=== PATIENT | female | born 1970 | race Caucasian/White ===

== ENCOUNTER 2016-03-28 23:47 | Emergency (ER) | payer BC, OTHER ==
[2016-03-29 00:26] VITALS: TEMP 99.1; O2SAT 97
--- NOTE | 2016-03-29 00:27 | ED.PDOC ---
History of Present Illness - General Chief Complaint: Headache Stated Complaint: facial pain right Time Seen by Provider: 03/29/16 00:21 Source: patient Exam Limitations: no limitations - History of Present Illness Initial Comments: She stated that her intermittent right sided sharp facial pain started early yesterday at about 0300 h which woke her up took several OTC pain medication nsaid ,acetominophen which did not relieve her symptoms persisting up to the time she got to er. Timing/Duration: intermittent, other - 18 hours Severity: severe Improving Factors: nothing Worsening Factors: nothing Associated Symptoms: other - blurry vision right Allergies/Adverse Reactions: Allergies Ceftriaxone [From Rocephin] Allergy (Verified 03/29/16 00:10) Ondansetron [From Zofran] Allergy (Verified 03/29/16 00:14) Penicillins Allergy (Verified 03/29/16 00:14) Sulfa Antibiotics Allergy (Verified 03/29/16 00:14) Home Medications: Ambulatory Orders Gabapentin 300 mg PO TID #30 cap 03/29/16 Tramadol HCl [Rybix Odt] 50 mg PO Q4HR PRN #20 tab 03/29/16 predniSONE [Prednisone] 10 mg PO BID #14 tab 03/29/16 Review of Systems - Review of Systems Constitutional: States: see HPI EENTM: States: see HPI, blurred vision, ear discharge - chronic right Respiratory: States: no symptoms reported Cardiology: States: no symptoms reported Gastrointestinal/Abdominal: States: no symptoms reported Genitourinary: States: no symptoms reported Musculoskeletal: States: no symptoms reported Skin: States: no symptoms reported Neurological: States: no symptoms reported, depressed - chronic Endocrine: States: no symptoms reported Past Medical History (General) - Patient Medical History Hx Other PMH: Yes - TMJ,depression Surgical History: appendectomy, cholecystectomy, other - ,tahbso - Social History Hx Depression: Yes - since son 4 years ago - Activities of Daily Living Patient Lives Alone: No - lives with - Female History Patient is a Female of Child Bearing Age (10 -59 yrs old): No - tahbso Family Medical History - Family History Father Hx Family Hypertension: Yes - mom Hx Family Diabetes: Yes - mom Hx Family Cancer: Yes - brain Father Paternal Family History: Unknown Physical Exam - Physical Exam General Appearance: Alert, Anxious, No apparent distress, Other - no facial asymmetry noted Eye Exam: bilateral normal Ears, Nose, Throat: hearing grossly normal, normal pharynx, other - ear canal erythema right >left,nasal congestion Neck: non-tender, full range of motion, supple, normal inspection Respiratory: chest non-tender, lungs clear, normal breath sounds Cardiovascular/Chest: regular rate, rhythm, no JVD, no murmur Peripheral Pulses: radial,right: 2+, radial,left: 2+ Gastrointestinal/Abdominal: normal bowel sounds, soft, no organomegaly Back Exam: normal inspection, no CVA tenderness, no vertebral tenderness Extremity: normal range of motion, non-tender, normal inspection 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, alert, normal mood/affect, oriented x 3, other - speech fluent Skin Exam: normal color, warm/dry Lymphatic: no adenopathy Progress - Results/Orders Results/Orders: 03/29/16 00:27 Head [CT] Stat 03/29/16 00:30 EKG STAT 03/29/16 01:06 Morphine Sulfate Inj 5 mg IM ONCE ONE 03/29/16 01:07 Promethazine HCl Inj [Phenergan Inj] 50 mg IM ONCE ONE predniSONE 30 mg PO ONCE ONE 03/29/16 01:08 Gabapentin [Neurontin] 300 mg PO ONCE ONE Laboratory Results WBC 12.4 K/mm3 (4.8-10.8) H 03/29/16 00:45 RBC 4.71 M/mm3 (4.20-5.40) 03/29/16 00:45 Hgb 14.1 gm/dL (12.0-16.0) 03/29/16 00:45 Hct 42.3 % (36.0-47.0) 03/29/16 00:45 MCV 89.7 fl (81.0-99.0) 03/29/16 00:45 MCH 30.0 pg (27.0-31.0) 03/29/16 00:45 MCHC 33.4 g/dL (33.0-37.0) 03/29/16 00:45 RDW 12.8 % (11.5-14.5) 03/29/16 00:45 Plt Count 247 K/mm3 (130-400) 03/29/16 00:45 MPV 10.5 fl (7.40-10.4) H 03/29/16 00:45 Absolute Neuts (auto) 8.50 K/uL (1.8-6.8) H 03/29/16 00:45 Absolute Lymphs (auto) 2.90 K/uL (1.0-3.4) 03/29/16 00:45 Absolute Monos (auto) 0.80 K/uL (0.2-0.8) 03/29/16 00:45 Absolute Eos (auto) 0.20 K/uL (0.0-0.4) 03/29/16 00:45 Absolute Basos (auto) 0.10 K/uL (0.0-0.1) 03/29/16 00:45 Neutrophils % 68.2 % (42.0-78.0) 03/29/16 00:45 Lymphocytes % 23.4 % (20.0-50.0) 03/29/16 00:45 Monocytes % 6.4 % (2.0-9.0) 03/29/16 00:45 Eosinophils % 1.2 % (1.0-5.0) 03/29/16 00:45 Basophils % 0.8 % (0.0-2.0) 03/29/16 00:45 - EKG/XRAY/CT EKG: Sinus - heart rate-65/min, no ST T wave changes Departure - Departure Clinical Impression: Acute facial pain Time of Disposition: : Disposition: Discharge to Home or Self Care Condition: Fair Departure Forms: ED Discharge - Pt. Copy, Patient Portal Self Enrollment Instructions: Olvera's Palsy, Trigeminal Neuralgia, Shingles Referrals: Mike Sanchez MD [Primary Care Provider] - 1-2 Weeks Prescriptions: Tramadol HCl [Rybix Odt] 50 mg PO Q4HR PRN #20 tab PRN Reason: Pain Gabapentin 300 mg PO TID #30 cap predniSONE [Prednisone] 10 mg PO BID #14 tab Home Medications: Ambulatory Orders Gabapentin 300 mg PO TID #30 cap 03/29/16 Tramadol HCl [Rybix Odt] 50 mg PO Q4HR PRN #20 tab 03/29/16 predniSONE [Prednisone] 10 mg PO BID #14 tab 03/29/16 Additional Instructions: FOLLOW UP WITH PRIMARY MD IN AM
[2016-03-29] MEDS ORDERED: MORPHINE SULFATE INJ 10 MG/ML VIAL IM ONE (01:06)
[2016-03-29] MEDS ORDERED: PROMETHAZINE HCL INJ 25 MG/ML VIAL IM ONE (01:07)
[2016-03-29] MEDS ORDERED: predniSONE 10 MG TAB PO ONE (01:07)
[2016-03-29] MEDS ORDERED: GABAPENTIN 300 MG CAP PO ONE (01:08)
--- NOTE | 2016-03-29 01:12 | CT ---
EXAM DESCRIPTION: CT HEAD WITHOUT IV CONTRAST 03/29/2016 1:05 AM CLINICAL HISTORY: 46 y/o , F, pain. COMPARISON: None. TECHNIQUE: Volumetric CT acquisition was performed through the brain. Images in the axial plane were presented for interpretation. FINDINGS: The soft tissue structures of the face and scalp are normal. The globes remain intact. The soft tissues of the orbital fossae are normal. The paranasal sinuses are grossly clear. Limited evaluation of the facial bones demonstrate no gross abnormalities. The calvarium remains intact. There is no evidence of acute intracranial hemorrhage, midline shift, or mass effect. The ventricles are age appropriate in size. The posterior fossa structures are within normal limits. Specifically, there is no CT evidence of acute infarct, though CT can be insensitive for the detection of acute ischemia. IMPRESSION: No acute intracranial process Electronically signed by: Leena Chris MD 03/29/2016 01:09
[2016-03-29 01:33] VITALS: BP 147/83
== END 2016-03-29 01:45 | disposition home or self-care (01) ==
LOC: ER 23:47
DX: R51 Headache (principal); F32.9 Major depressive disorder, single episode, unspecified; Z88.0 Allergy status to penicillin; Z88.2 Allergy status to sulfonamides; Z88.8 Allergy status to other drugs, medicaments and biological substances; Z80.8 Family history of malignant neoplasm of other organs or systems
CPT/HCPCS: 36415; 70450; 85025; 93005; J2270; J2550; J7512

== ENCOUNTER 2016-07-02 20:07 | Emergency (ER) | payer BC ==
[2016-07-02] MEDS ORDERED: LACTATED RINGERS 1,000 ML IVS ONE (20:26)
--- NOTE | 2016-07-02 20:26 | ED.PDOC ---
History of Present Illness - General Chief Complaint: Abdominal Pain Stated Complaint: abd pain Time Seen by Provider: 07/02/16 20:25 Information Source: patient Exam Limitations: no limitations - History of Present Illness Initial Comments: Dayne Goodrich 46 y/o female stated that she had onset of nausea no vomiting this am then followed by waxing and waning RLQ pain which progressively worse this pm.No hematuria,no diarrhea had regular BM today.Stated feels like straining. Abdominal Pain Onset Location: RLQ Pain Radiation: no radiation Quality: sharpness, waxing/waning Timing/Duration: 7-24 hours, getting worse Improving Factors: nothing Worsening Factors: nothing Associated Symptoms: denies symptoms Review of Systems - Review of Systems Constitutional: States: no symptoms reported EENTM: States: no symptoms reported Respiratory: States: no symptoms reported Cardiology: States: no symptoms reported Gastrointestinal/Abdominal: States: see HPI, abdominal pain Musculoskeletal: States: no symptoms reported Skin: States: no symptoms reported Neurological: States: no symptoms reported Endocrine: States: no symptoms reported Hematologic/Lymphatic: States: no symptoms reported Past Medical History (General) - Patient Medical History Hx Asthma: No Hx of COPD: No Hx Cardiac Disorders: No Hx Pacemaker: No Hx Hypertension: No Hx Diabetes: No Hx Gastroesophageal Reflux: No Hx Cancer: Yes - OVARIAN Hx Hepatitis C: No Surgical History: cholecystectomy, other - hysterectomy, - Vaccination History Hx Tetanus, Diphtheria Vaccination: No Hx Influenza Vaccination: No Hx Pneumococcal Vaccination: No Immunizations Up to Date: No - Social History Hx Alcohol Use: No Hx Substance Use: No Hx Depression: Yes - Activities of Daily Living Patient Lives Alone: No - family - Female History Patient is a Female of Child Bearing Age (10 -59 yrs old): No Family Medical History - Family History Father Paternal Family History: Unknown Hx Family Hypertension: Yes - mom Hx Family Diabetes: Yes - mom Hx Family Cancer: Yes - brain-dad Father Family History: Unknown Hx Family Hypertension: Yes - mom Hx Family Diabetes: Yes - mom Hx Family Cancer: Yes - brain Progress - Results/Orders Results/Orders: 07/02/16 21:53 Hold Metformin x 48Hrs [id number] Laboratory Results WBC 11.1 K/mm3 (4.8-10.8) H 07/02/16 20:46 RBC 4.77 M/mm3 (4.20-5.40) 07/02/16 20:46 Hgb 14.6 gm/dL (12.0-16.0) 07/02/16 20:46 Hct 42.6 % (36.0-47.0) 07/02/16 20:46 MCV 89.3 fl (81.0-99.0) 07/02/16 20:46 MCH 30.6 pg (27.0-31.0) 07/02/16 20:46 MCHC 34.3 g/dL (33.0-37.0) 07/02/16 20:46 RDW 13.0 % (11.5-14.5) 07/02/16 20:46 Plt Count 246 K/mm3 (130-400) 07/02/16 20:46 MPV 10.5 fl (7.40-10.4) H 07/02/16 20:46 Absolute Neuts (auto) 7.90 K/uL (1.8-6.8) H 07/02/16 20:46 Absolute Lymphs (auto) 2.30 K/uL (1.0-3.4) 07/02/16 20:46 Absolute Monos (auto) 0.70 K/uL (0.2-0.8) 07/02/16 20:46 Absolute Eos (auto) 0.10 K/uL (0.0-0.4) 07/02/16 20:46 Absolute Basos (auto) 0.10 K/uL (0.0-0.1) 07/02/16 20:46 Neutrophils % 71.3 % (42.0-78.0) 07/02/16 20:46 Lymphocytes % 20.5 % (20.0-50.0) 07/02/16 20:46 Monocytes % 6.0 % (2.0-9.0) 07/02/16 20:46 Eosinophils % 0.9 % (1.0-5.0) L 07/02/16 20:46 Basophils % 1.3 % (0.0-2.0) 07/02/16 20:46 Sodium 139 mmol/L (135-145) 07/02/16 20:46 Potassium 3.9 mmol/L (3.6-5.0) 07/02/16 20:46 Chloride 105 mmol/L (101-111) 07/02/16 20:46 Carbon Dioxide 28 mmol/L (21-31) 07/02/16 20:46 Anion Gap 9.9 (12-18) L 07/02/16 20:46 BUN 11 mg/dL (7-18) 07/02/16 20:46 Creatinine < 0.40 mg/dL (0.6-1.3) L 07/02/16 20:46 BUN/Creatinine Ratio 27.0 (10-20) H 07/02/16 20:46 Random Glucose 100 mg/dL (70-105) 07/02/16 20:46 Serum Osmolality 277.0 mOsm/L (275-295) 07/02/16 20:46 Calcium 9.2 mg/dL (8.4-10.2) 07/02/16 20:46 Total Bilirubin 0.3 mg/dL (0.2-1.0) 07/02/16 20:46 AST 14 IU/L (10-42) 07/02/16 20:46 ALT 21 IU/L (10-60) 07/02/16 20:46 Alkaline Phosphatase 53 IU/L (42-121) 07/02/16 20:46 Serum Total Protein 7.5 gm/dL (6.4-8.2) 07/02/16 20:46 Albumin 4.2 g/dl (3.2-5.5) 07/02/16 20:46 Globulin 3.3 gm/dL (2.3-3.5) 07/02/16 20:46 Albumin/Globulin Ratio 1.3 (1.1-1.9) 07/02/16 20:46 Urine Color Yellow (Yellow) 07/02/16 20:46 Urine Appearance Clear (Clear) 07/02/16 20:46 Urine pH 5.5 (4.5-7.8) 07/02/16 20:46 Ur Specific [place] >= 1.030 (1.005-1.030) 07/02/16 20:46 Urine Protein Negative mg/dL 07/02/16 20:46 Urine Glucose (UA) Negative mg/dL (Negative) 07/02/16 20:46 Urine Ketones Negative mg/dL (NEGATIVE) 07/02/16 20:46 Urine Blood Small (Negative) H 07/02/16 20:46 Urine Nitrite Negative 07/02/16 20:46 Urine Bilirubin Negative (NEGATIVE) 07/02/16 20:46 Urine Urobilinogen 0.2 mg/dL (0.2-1.0) 07/02/16 20:46 Ur Leukocyte Esterase Negative (Negative) 07/02/16 20:46 Urine RBC 1-3 /hpf 07/02/16 20:46 Urine WBC 0-1 /hpf 07/02/16 20:46 Ur Epithelial Cells 1-3 /hpf 07/02/16 20:46 Urine Bacteria Rare 07/02/16 20:46 Urine Mucus Trace 07/02/16 20:46 Urine Yeast Rare 07/02/16 20:46 Departure - Departure Clinical Impression: Abdominal pain Qualifiers: Abdominal location: right lower quadrant Qualifier Code: (R10.31) Right lower quadrant pain Time of Disposition: 00:00 Disposition: Discharge to Home or Self Care Condition: Good Departure Forms: ED Discharge - Pt. Copy, Patient Portal Self Enrollment Instructions: DI for Abdominal Pain-Adult Diet: bland diet, other - Avoid greasy spicy foods until better Home Medications: Ambulatory Orders Citalopram Hydrobromide 20 mg PO DAILY 03/29/16 Additional Instructions: RETURN TO EMERGENCY ROOM NEEDED
[2016-07-02] MEDS ORDERED: ONDANSETRON INJ 4 MG/2 ML VIAL IV ONE (20:27)
[2016-07-02] MEDS ORDERED: MORPHINE SULFATE INJ 10 MG/ML VIAL IV ONE (20:28)
[2016-07-02] MEDS ORDERED: PROCHLORPERAZINE INJ 10 MG/2 ML VIAL IV ONE (20:44)
[2016-07-02] MEDS ORDERED: PROCHLORPERAZINE INJ 10 MG/2 ML VIAL ONE (20:45)
--- NOTE | 2016-07-02 23:44 | CT ---
Procedure: CT ABDOMEN PELVIS WITH IV CONTRAST Exam Date: 07/02/2016 Ordering Provider: Yinka Hill Clinical Indication: Generalized abdominal pain Comparison: None TECHNIQUE: 5 mm images were taken through the abdomen and pelvis after the administration of nonionic intravenous contrast material. Oral contrast was not administered. Coronal and sagittal reformatted images were generated. This exam was performed according to our departmental dose optimization program which includes use of automated exposure control, adjustment of the mA and/or kV according to patient size and/or use of iterative reconstruction technique. FINDINGS: Lower chest: 4 mm nodule in the right lower lobe. No follow-up required. Abdomen: Liver and biliary system: No liver lesions. No biliary ductal dilatation. Prior cholecystectomy. Spleen: Unremarkable Pancreas: Unremarkable Adrenal glands: Unremarkable Kidneys: No suspicious lesions or hydronephrosis in either kidney. Lymph nodes: No lymphadenopathy Retroperitoneum, abdominal wall, peritoneal cavity: No ascites. No free intraperitoneal air. Postsurgical changes at the anterior midline abdominal wall. There is a fat-containing ventral hernia on the right. Probable injection granulomas in the posterior superficial soft tissues. Vessels: No abdominal aortic aneurysm. Pelvis: Multiple surgical clips in the pelvis. Lymph nodes: No lymphadenopathy Bowel: No bowel obstruction. Colonic diverticulosis without evidence of diverticulitis. Normal appendix. No bowel wall thickening. Bladder: Unremarkable Pelvic organs: Prior hysterectomy. Bones: Nonacute IMPRESSION: 1. No acute abnormalities in the abdomen or pelvis. Electronically signed by: Jose Silva MD 07/02/2016 11:43 PM CDT
[2016-07-03 00:23] VITALS: BP 114/76; TEMP 98; O2SAT 96
--- NOTE | 2016-07-07 07:28 | ED.PDOC ---
History of Present Illness - General Chief Complaint: Abdominal Pain Stated Complaint: abd pain Time Seen by Provider: 07/02/16 20:25 Information Source: patient, RN notes reviewed Exam Limitations: no limitations - History of Present Illness Abdominal Pain Onset Location: RLQ Pain Radiation: no radiation Quality: intermittent, sharpness Timing/Duration: 7-24 hours, getting worse Improving Factors: nothing, eating Associated Symptoms: denies symptoms Review of Systems - Review of Systems Constitutional: States: no symptoms reported EENTM: States: no symptoms reported Respiratory: States: no symptoms reported Cardiology: States: no symptoms reported Gastrointestinal/Abdominal: States: other - nausea no vomiting Genitourinary: States: no symptoms reported Musculoskeletal: States: no symptoms reported Skin: States: no symptoms reported Neurological: States: no symptoms reported Endocrine: States: no symptoms reported Hematologic/Lymphatic: States: no symptoms reported Past Medical History (General) - Patient Medical History Hx Asthma: No Hx of COPD: No Hx Cardiac Disorders: No Hx Pacemaker: No Hx Hypertension: No Hx Diabetes: No Hx Gastroesophageal Reflux: No Hx Cancer: Yes - OVARIAN Hx Hepatitis C: No Surgical History: cholecystectomy, other - hysterectomy, - Vaccination History Hx Tetanus, Diphtheria Vaccination: No Hx Influenza Vaccination: No Hx Pneumococcal Vaccination: No Immunizations Up to Date: No - Social History Hx Alcohol Use: No Hx Substance Use: No Hx Depression: Yes - Activities of Daily Living Patient Lives Alone: No - family - Female History Patient is a Female of Child Bearing Age (10 -59 yrs old): No Family Medical History - Family History Father Paternal Family History: Unknown Hx Family Hypertension: Yes - mom Hx Family Diabetes: Yes - mom Hx Family Cancer: Yes - brain-dad Father Family History: Unknown Hx Family Hypertension: Yes - mom Hx Family Diabetes: Yes - mom Hx Family Cancer: Yes - brain Physical Exam - Physical Exam General Appearance: Alert, Anxious, No apparent distress Eyes, Ears, Nose, Throat Exam: PERRL/EOMI, normal ENT inspection, TMs normal, pharynx normal Neck: non-tender, full range of motion, supple Respiratory: chest non-tender, lungs clear, normal breath sounds, no respiratory distress Cardiovascular/Chest: normal peripheral pulses, regular rate, rhythm, no edema, no gallop, no murmur Gastrointestinal/Abdominal: normal bowel sounds, soft, no organomegaly, tenderness - right lower quadrant, other - negative rovsing sign Back Exam: normal inspection, no CVA tenderness Extremity: normal inspection Neurologic: no motor/sensory deficits, alert, oriented x 3 Skin Exam: normal color, warm/dry Lymphatic: no adenopathy Progress - Results/Orders Results/Orders: Laboratory Results WBC 11.1 K/mm3 (4.8-10.8) H 07/02/16 20:46 RBC 4.77 M/mm3 (4.20-5.40) 07/02/16 20:46 Hgb 14.6 gm/dL (12.0-16.0) 07/02/16 20:46 Hct 42.6 % (36.0-47.0) 07/02/16 20:46 MCV 89.3 fl (81.0-99.0) 07/02/16 20:46 MCH 30.6 pg (27.0-31.0) 07/02/16 20:46 MCHC 34.3 g/dL (33.0-37.0) 07/02/16 20:46 RDW 13.0 % (11.5-14.5) 07/02/16 20:46 Plt Count 246 K/mm3 (130-400) 07/02/16 20:46 MPV 10.5 fl (7.40-10.4) H 07/02/16 20:46 Absolute Neuts (auto) 7.90 K/uL (1.8-6.8) H 07/02/16 20:46 Absolute Lymphs (auto) 2.30 K/uL (1.0-3.4) 07/02/16 20:46 Absolute Monos (auto) 0.70 K/uL (0.2-0.8) 07/02/16 20:46 Absolute Eos (auto) 0.10 K/uL (0.0-0.4) 07/02/16 20:46 Absolute Basos (auto) 0.10 K/uL (0.0-0.1) 07/02/16 20:46 Neutrophils % 71.3 % (42.0-78.0) 07/02/16 20:46 Lymphocytes % 20.5 % (20.0-50.0) 07/02/16 20:46 Monocytes % 6.0 % (2.0-9.0) 07/02/16 20:46 Eosinophils % 0.9 % (1.0-5.0) L 07/02/16 20:46 Basophils % 1.3 % (0.0-2.0) 07/02/16 20:46 Sodium 139 mmol/L (135-145) 07/02/16 20:46 Potassium 3.9 mmol/L (3.6-5.0) 07/02/16 20:46 Chloride 105 mmol/L (101-111) 07/02/16 20:46 Carbon Dioxide 28 mmol/L (21-31) 07/02/16 20:46 Anion Gap 9.9 (12-18) L 07/02/16 20:46 BUN 11 mg/dL (7-18) 07/02/16 20:46 Creatinine < 0.40 mg/dL (0.6-1.3) L 07/02/16 20:46 BUN/Creatinine Ratio 27.0 (10-20) H 07/02/16 20:46 Random Glucose 100 mg/dL (70-105) 07/02/16 20:46 Serum Osmolality 277.0 mOsm/L (275-295) 07/02/16 20:46 Calcium 9.2 mg/dL (8.4-10.2) 07/02/16 20:46 Total Bilirubin 0.3 mg/dL (0.2-1.0) 07/02/16 20:46 AST 14 IU/L (10-42) 07/02/16 20:46 ALT 21 IU/L (10-60) 07/02/16 20:46 Alkaline Phosphatase 53 IU/L (42-121) 07/02/16 20:46 Serum Total Protein 7.5 gm/dL (6.4-8.2) 07/02/16 20:46 Albumin 4.2 g/dl (3.2-5.5) 07/02/16 20:46 Globulin 3.3 gm/dL (2.3-3.5) 07/02/16 20:46 Albumin/Globulin Ratio 1.3 (1.1-1.9) 07/02/16 20:46 Urine Color Yellow (Yellow) 07/02/16 20:46 Urine Appearance Clear (Clear) 07/02/16 20:46 Urine pH 5.5 (4.5-7.8) 07/02/16 20:46 Ur Specific [place] >= 1.030 (1.005-1.030) 07/02/16 20:46 Urine Protein Negative mg/dL 07/02/16 20:46 Urine Glucose (UA) Negative mg/dL (Negative) 07/02/16 20:46 Urine Ketones Negative mg/dL (NEGATIVE) 07/02/16 20:46 Urine Blood Small (Negative) H 07/02/16 20:46 Urine Nitrite Negative 07/02/16 20:46 Urine Bilirubin Negative (NEGATIVE) 07/02/16 20:46 Urine Urobilinogen 0.2 mg/dL (0.2-1.0) 07/02/16 20:46 Ur Leukocyte Esterase Negative (Negative) 07/02/16 20:46 Urine RBC 1-3 /hpf 07/02/16 20:46 Urine WBC 0-1 /hpf 07/02/16 20:46 Ur Epithelial Cells 1-3 /hpf 07/02/16 20:46 Urine Bacteria Rare 07/02/16 20:46 Urine Mucus Trace 07/02/16 20:46 Urine Yeast Rare 07/02/16 20:46 - EKG/XRAY/CT CT: abd/pelvis-no acute abnormality noted Departure - Departure Clinical Impression: Abdominal pain Qualifiers: Abdominal location: right lower quadrant Qualified Code(s): R10.31 - Right lower quadrant pain Time of Disposition: 00:22 Disposition: Discharge to Home or Self Care Condition: Good Departure Forms: ED Discharge - Pt. Copy, Patient Portal Self Enrollment Instructions: DI for Abdominal Pain-Adult Referrals: Mike Sanchez MD [Primary Care Provider] - 1-2 Weeks Home Medications: Ambulatory Orders Citalopram Hydrobromide 20 mg PO DAILY 03/29/16 Additional Instructions: RETURN TO EMERGENCY ROOM NEEDED
== END 2016-07-03 00:15 | disposition home or self-care (01) ==
LOC: ER 20:07
DX: R10.31 Right lower quadrant pain (principal); Z85.43 Personal history of malignant neoplasm of ovary